=== PATIENT | female | born 1950 | race Caucasian/White ===

== ENCOUNTER 2017-03-30 09:51 | Outpatient (CLI) | payer MEDICARE, OTHER ==
--- NOTE | 2017-03-30 12:12 | RAD ---
PA AND LATERAL CHEST X-RAY 03/30/2017 HISTORY: Cough and bronchitis for 3 weeks. COMPARISON: 04/24/2010 FINDINGS: There is increased interstitial opacity seen in the left lower lobe worrisome for pneumonitis. The right lung is clear. Cardiac silhouette and pulmonary vasculature are within normal limits. Degener ative changes seen in the spine. No other interval change from the prior exam. IMPRESSION: Interstitial opacities left lower lobe. Findings are worrisome for developing pneumonia. Follow-up to resolution is recommended. POS: [facility]
== END 2017-03-30 09:52 | disposition home or self-care (01) ==
LOC: NAV RAD 09:51
PROVIDERS: ATTEND Family Medicine
DX: J40 Bronchitis, not specified as acute or chronic (principal)
CPT/HCPCS: 71020

== ENCOUNTER 2017-03-30 10:15 | Emergency (ER) | payer MEDICARE, OTHER | END 2017-03-30 10:52 | disposition home or self-care (01) | LOC: NAV ERS 10:15 | DX: J20.9 Acute bronchitis, unspecified (principal); E78.5 Hyperlipidemia, unspecified; I10 Essential (primary) hypertension; F41.9 Anxiety disorder, unspecified; Z87.891 Personal history of nicotine dependence; Z79.899 Other long term (current) drug therapy | CPT/HCPCS: 71020; 99283 ==

== ENCOUNTER 2017-07-30 18:20 | Emergency (ER) | payer MEDICARE, BC ==
[2017-07-30] MEDS ORDERED: Ondansetron HCl/PF 4 MG/2 ML Vial ONE (18:29)
[2017-07-30] MEDS ORDERED: Morphine 2 MG/ML SYRINGE ONE (19:21)
[2017-07-30] MEDS ORDERED: CEFAZOLIN 1 GM VIAL ONE (19:45)
[2017-07-30] MEDS ORDERED: Sodium Chloride 0.9% 0 ML ONE ×3 (19:45→19:49)
[2017-07-30] MEDS ORDERED: Clindamycin 300 MG/2 ML VIAL ONE (19:49)
[2017-07-30] MEDS ORDERED: Sodium Chloride 0.9% 100 ML ONE (19:50)
[2017-07-30] MEDS ORDERED: Adacel (T-DAP) 0.5 ML VIAL ONE (20:02)
--- NOTE | 2017-07-30 20:22 | RAD ---
THREE VIEWS LEFT HAND: 07/30/17 HISTORY: Injury to second and third digits by lawnmower blade. AP, lateral, and oblique views left hand is obtained. There is a mildly displaced fracture involving the proximal portion of the distal phalanx second digit left hand extending into the DIP joint. The re also appears to be possible fracture involving the distal tuft of the distal phalanx second digit . There is also soft tissue injury to the anterior aspect of the third digit. There is also some pos sible irregularity and possible nondisplaced fracture in the mid portion of the distal phalanx third digit left hand. IMPRESSION: 1. Definite intra-articular second digit fracture both proximally and distally. 2. Definite soft tissue injury distal anterior aspect of third digit left hand with possible no ndisplaced fracture in the proximal portion of the distal phalanx. POS: [facility]
== END 2017-07-30 21:23 | disposition short-term general hospital (02) ==
LOC: NAV ERS 18:20
DX: S62.631A Displaced fracture of distal phalanx of left index finger, initial encounter for closed fracture (principal); S62.611A Displaced fracture of proximal phalanx of left index finger, initial encounter for closed fracture; S61.211A Laceration without foreign body of left index finger without damage to nail, initial encounter; E78.5 Hyperlipidemia, unspecified; F41.9 Anxiety disorder, unspecified; F17.210 Nicotine dependence, cigarettes, uncomplicated; I10 Essential (primary) hypertension; Z79.1 Long term (current) use of non-steroidal anti-inflammatories (NSAID); Z79.899 Other long term (current) drug therapy; W26.8XXA Contact with other sharp object(s), not elsewhere classified, initial encounter
CPT/HCPCS: 90471; 90715; 96365; 96375; 96376; J0690; J2270; J2405; J3490; J7050

== ENCOUNTER 2022-06-21 11:19 | Inpatient (IN) | payer MEDICARE, BC ==
[2022-06-21] MEDS ORDERED: Cyclobenzaprine 10 MG TAB PO PRN (11:27)
[2022-06-21] MEDS ORDERED: Acetaminophen 325 MG TAB PO PRN (11:28)
[2022-06-21] MEDS ORDERED: Ondansetron ODT 4 MG TAB PO PRN (11:28)
[2022-06-21] MEDS ORDERED: Bisacodyl 5 MG TAB PO PRN (11:28)
[2022-06-21] MEDS ORDERED: Senokot S 8.6-50 MG TAB PO PRN (11:28)
[2022-06-21] MEDS ORDERED: Ibuprofen 800 MG TAB PO PRN (11:28)
[2022-06-21] MEDS: Aspirin 81 mg Enteric Coated Tablet PO SCH (20:55)
[2022-06-21] MEDS: Atorvastatin Calcium 40 MG TAB PO SCH (20:55)
[2022-06-21] MEDS: Cholecalciferol 1,000 UNITS (25 MCG) TAB PO SCH (20:55)
[2022-06-21] MEDS: Acetaminophen/Codeine 30-300mg Tablet PO PRN (21:40)
[2022-06-21 21:51] VITALS: BMI 25.9
[2022-06-22] MEDS ORDERED: Ondansetron ODT 4 MG TAB SL PRN (01:30)
[2022-06-22 05:23] LABS: #Basophils 0.1 thou/uL (0.0-0.2); #Eosinphils 0.4 thou/uL (0.0-0.7); #Monocytes 0.7 thou/uL (0.11-0.59); #Neutrophils 6.2 thou/uL (1.40-6.50); %Basophils 0.6 % (0.0-1.0); %Eosinophils 5.1 % (0.0-10.0); %Lymphocytes 12.1 % (21.0-51.0); %Monocytes 8.7 % (0.0-10.0); %Neutrophils 73.5 % (42.0-75.0); Hemoglobin 10.2 g/dL (12.0-16.0); Mean Corpuscular HGB CONC 31.5 g/dL (32.0-36.0); Mean Corpuscular Hemoglobin 30.8 pg (27.0-31.0); Mean Corpuscular Volume 97.9 fL (78.0-98.0); Mean Platelet Volume 6.5 fL (7.4-10.4); Platelet Count 340 thou/uL (130-400); RBC Distribution Width 12.8 % (11.5-14.5); White Blood Cell (WBC) Count 8.4 thou/uL (4.8-10.8)
[2022-06-22 05:37] LABS: ALT (SGPT) 13 U/L (8-55); AST (SGOT) 17 U/L (5-34); Albumin 3.2 g/dL (3.4-4.8); Alkaline Phosphatase 55 U/L (40-110); Anion Gap 14 mmol/L (10-20); BUN (Urea Nitrogen) 7 mg/dL (9.8-20.1); Bilirubin, Total 0.6 mg/dL (0.2-1.2); Calc. Creatinine Clearance 88 mL/min (70-130); Calcium 8.8 mg/dL (7.8-10.44); Carbon Dioxide 28 mmol/L (23-31); Chloride 100 mmol/L (98-107); Estimated GFR 89; Globulin 2.5 g/dL (2.4-3.5); Glucose 106 mg/dL (83-110); Magnesium 1.7 mg/dL (1.6-2.6); Potassium 3.6 mmol/L (3.5-5.1); Protein, Total 5.7 g/dL (5.8-8.1); Sodium 138 mmol/L (136-145)
[2022-06-22] MEDS: Magnesium Oxide 400 MG TAB PO SCH (09:47)
[2022-06-22] MEDS: Lisinopril 20 MG TAB PO SCH (09:47)
[2022-06-22] MEDS: Bupropion 150 MG XL TAB PO SCH (09:47)
[2022-06-22] MEDS: Escitalopram Oxalate 20 mg Tablet PO SCH (09:49)
[2022-06-22] MEDS: Hydrochlorothiazide 25 MG TAB PO SCH (09:49)
[2022-06-22] MEDS: Amlodipine 5 MG TAB PO SCH (09:50)
[2022-06-22] MEDS: Polyethylene Glycol 3350 17 GM Packet PO SCH (09:50)
[2022-06-22] MEDS: Enoxaparin Sodium 40 MG/0.4 ML SYRINGE SC SCH (09:52)
[2022-06-22] MEDS: Lansoprazole 3 MG/ML ORAL SUSPENSION PO SCH (09:53)
[2022-06-22] MEDS: Atorvastatin Calcium 40 MG TAB PO SCH (21:47)
[2022-06-22] MEDS: Cholecalciferol 1,000 UNITS (25 MCG) TAB PO SCH (21:47)
[2022-06-22] MEDS: Aspirin 81 mg Enteric Coated Tablet PO SCH (21:47)
[2022-06-22] MEDS: Acetaminophen/Codeine 30-300mg Tablet PO PRN (22:02)
[2022-06-23] MEDS: Bupropion 150 MG XL TAB PO SCH (08:55)
[2022-06-23] MEDS: Hydrochlorothiazide 25 MG TAB PO SCH (08:56)
[2022-06-23] MEDS: Escitalopram Oxalate 20 mg Tablet PO SCH (08:56)
[2022-06-23] MEDS: Magnesium Oxide 400 MG TAB PO SCH (08:56)
[2022-06-23] MEDS: Amlodipine 5 MG TAB PO SCH (09:00)
[2022-06-23] MEDS: Enoxaparin Sodium 40 MG/0.4 ML SYRINGE SC SCH (09:00)
[2022-06-23] MEDS: Lisinopril 20 MG TAB PO SCH (09:01)
[2022-06-23] MEDS: Polyethylene Glycol 3350 17 GM Packet PO SCH (09:02)
[2022-06-23] MEDS: Lansoprazole 3 MG/ML ORAL SUSPENSION PO SCH (09:34)
[2022-06-23] MEDS: Acetaminophen/Codeine 30-300mg Tablet PO PRN (21:09)
[2022-06-23] MEDS: Cholecalciferol 1,000 UNITS (25 MCG) TAB PO SCH (21:10)
[2022-06-23] MEDS: Atorvastatin Calcium 40 MG TAB PO SCH (21:10)
[2022-06-23] MEDS: Aspirin 81 mg Enteric Coated Tablet PO SCH (21:10)
[2022-06-24 09:37] VITALS: TEMP 99.5
[2022-06-24] MEDS: Magnesium Oxide 400 MG TAB PO SCH (09:53)
[2022-06-24] MEDS: Escitalopram Oxalate 20 mg Tablet PO SCH (09:53)
[2022-06-24] MEDS: Bupropion 150 MG XL TAB PO SCH (09:53)
[2022-06-24] MEDS: Enoxaparin Sodium 40 MG/0.4 ML SYRINGE SC SCH (09:53)
[2022-06-24] MEDS: Lansoprazole 3 MG/ML ORAL SUSPENSION PO SCH (09:54)
[2022-06-24] MEDS: Hydrochlorothiazide 25 MG TAB PO SCH (09:54)
[2022-06-24] MEDS: Lisinopril 20 MG TAB PO SCH (09:54)
[2022-06-24] MEDS: Polyethylene Glycol 3350 17 GM Packet PO SCH (09:54)
[2022-06-24] MEDS: Amlodipine 5 MG TAB PO SCH (09:54)
[2022-06-24 09:55] VITALS: BP 100/52
== END 2022-06-24 17:00 | disposition home or self-care (01) | DRG 561 ==
LOC: NAV ACUTE 19:00
PROVIDERS: ADMIT Family Medicine; ATTEND Family Medicine
DX: S72.012D Unspecified intracapsular fracture of left femur, subsequent encounter for closed fracture with routine healing (principal); I10 Essential (primary) hypertension; M19.90 Unspecified osteoarthritis, unspecified site; W19.XXXD Unspecified fall, subsequent encounter; F32.A Depression, unspecified; K59.00 Constipation, unspecified; E83.42 Hypomagnesemia; Z90.710 Acquired absence of both cervix and uterus; Z98.890 Other specified postprocedural states; Z88.1 Allergy status to other antibiotic agents; Z87.891 Personal history of nicotine dependence
CPT/HCPCS: 80053; 83735; 85025; J1650

== ENCOUNTER 2023-07-23 10:21 | Outpatient (CLI) | payer MEDICARE, BC | END 2023-07-23 10:22 | disposition home or self-care (01) | LOC: NAV RAD 10:21 | PROVIDERS: ATTEND Nurse Practitioner Family | DX: M79.672 Pain in left foot (principal) ==

== ENCOUNTER 2024-11-11 10:07 | Outpatient (CLI) | payer MEDICARE, BC | END 2024-11-11 10:08 | disposition home or self-care (01) | LOC: NAV RAD 10:07 | PROVIDERS: ATTEND Nurse Practitioner Family | DX: J44.9 Chronic obstructive pulmonary disease, unspecified (principal) | CPT/HCPCS: 71046 ==

== ENCOUNTER 2025-06-26 14:30 | Emergency (ER) | payer MEDICARE ==
[2025-06-26 15:18] LABS: #Basophils 0.1 thou/uL (0.0-0.2); #Eosinophils 0.2 thou/uL (0.0-0.7); #Lymphocytes 1.5 thou/uL (1.20-3.40); #Monocytes 0.7 thou/uL (0.11-0.59); #Neutrophils 5.1 thou/uL (1.40-6.50); %Basophils 1.0 % (0.0-1.0); %Eosinophils 2.5 % (0.0-10.0); %Lymphocytes 19.6 % (21.0-51.0); %Monocytes 8.8 % (0.0-10.0); %Neutrophils 68.2 % (42.0-75.0); Hematocrit 37.3 % (36.0-47.0); Hemoglobin 12.5 g/dL (12.0-16.0); Mean Corpuscular Hemoglobin 29.4 pg (27.0-31.0); Mean Corpuscular Volume 87.7 fl (78.0-98.0); Platelet Count 416 10x3/uL (130-400); Red Blood Cell (RBC) Count 4.25 mill/uL (4.20-5.40); White Blood Cell (WBC) Count 7.5 10x3/uL (4.8-10.8)
[2025-06-26 15:22] LABS: Bicarbonate (HCO3v) 28.2 mmol/L (22.0-28.0); CO2 Tension (PvCO2) 43.4 mmHg (42.0-51.0); Calcium, Ionized 1.23 mmol/L (1.15-1.33); Chloride 97 mmol/L (98-107); Hemoglobin - Calc 13.5 g/dL (12.0-16.0); Potassium 2.9 mmol/L (3.5-5.1); Sodium 133 mmol/L (138-145); T. Carbon Dioxide 29.5 mmol/L (22.0-28.0); vO2 Saturation-calc 70.8 % (60.0-85.0)
[2025-06-26 15:28] LABS: ALT (SGPT) Less than 7 U/L (Less than 34); AST (SGOT) 14 U/L (11-34); Albumin 4.2 g/dL (3.1-4.5); Alkaline Phosphatase 65 U/L (40-110); Anion Gap 18 mmol/L (10-20); BUN (Urea Nitrogen) 15 mg/dL (9.8-20.1); Bilirubin, Total 0.5 mg/dL (0.3-1.2); Calc. Creatinine Clearance 0 mL/min (70-130); Calcium 9.7 mg/dL (7.8-10.44); Carbon Dioxide 24 mmol/L (23-31); Chloride 95 mmol/L (98-107); Globulin 2.8 g/dL (2.4-3.5); Glucose 83 mg/dL (83-110); Potassium 3.1 mmol/L (3.5-5.1); Sodium 134 mmol/L (136-145)
[2025-06-26 15:37] LABS: Troponin I Less than 0.010 ng/mL (< 0.028)
[2025-06-26 17:11] LABS: Glucose, Urine (Dipstick) Negative (Negative); Leukocyte Trace (Negative); Protein, Urine (Dipstick) Negative (Neg-Trace); Specific Gravity, Urine 1.010 (1.005-1.030)
[2025-06-26 17:12] LABS: Bacteria/HPF Rare-Few HPF (None Seen); CAUTI Indications for Culture Alt mental st,lethar; RBC/HPF 0-3 HPF (0-3); WBC/HPF None Seen HPF (0-3)
[2025-06-26 17:13] LABS: Urine Culture Reflex No No
== END 2025-06-26 17:25 | disposition home or self-care (01) ==
LOC: NAV ERS 14:30
DX: E86.0 Dehydration (principal); I95.9 Hypotension, unspecified; E78.5 Hyperlipidemia, unspecified; I10 Essential (primary) hypertension; F17.210 Nicotine dependence, cigarettes, uncomplicated; Z79.899 Other long term (current) drug therapy
CPT/HCPCS: 71045; 80053; 81001; 82330; 82435; 82803; 83605; 84132; 84295; 84484; 85014; 85025; 87426; 93005; 96360; 96361; J7030

== ENCOUNTER 2025-09-30 15:48 | Emergency (ER) | payer MEDICARE ==
[2025-09-30] MEDS ORDERED: Bacitracin 1 PK ONE (16:30)
== END 2025-09-30 16:50 | disposition home or self-care (01) ==
LOC: NAV ERS 15:48
DX: S93.401A Sprain of unspecified ligament of right ankle, initial encounter (principal); S50.812A Abrasion of left forearm, initial encounter; I10 Essential (primary) hypertension; E78.5 Hyperlipidemia, unspecified; F17.210 Nicotine dependence, cigarettes, uncomplicated; X50.9XXA Other and unspecified overexertion or strenuous movements or postures, initial encounter; Z79.899 Other long term (current) drug therapy
CPT/HCPCS: 90471; 90715